=== PATIENT | male | born 1950 | race Caucasian/White ===

== ENCOUNTER 2017-06-13 10:37 | Observation (INO) | payer MEDICARE, BC ==
[2017-06-13] VITALS (10 sets, daily range): BP systolic 118–211; BP diastolic 81–105; PULSE 59–68; RESP 16–18; TEMP 97–97.6; O2SAT 97–100
[~2017-06-13] VITALS: Ht 182.9 cm; Wt 89.7 kg
[~2017-06-13 10:37] MED LIST: ASPI81TA82 PO; CO Q200C3 PO; LOSA25 PO; MECL25CH PO; METO25 PO; MULTTAB23 PO; PLAV75TA PO; PRIL20CA PO; ROSU20 PO; ZOFR4TAB3 SL
[2017-06-13] MEDS ORDERED: ASPI81CH CHEW (11:01)
[2017-06-13] MEDS ORDERED: ROSU1TAB8 PO (11:01)
[2017-06-13] MEDS ORDERED: METO25TA3 PO (11:01)
[2017-06-13] MEDS ORDERED: CLOP75TA PO (11:01)
[2017-06-13] MEDS ORDERED: ALEV220T14 PO (11:01)
[2017-06-13] MEDS ORDERED: MULT-65 PO (11:01)
[2017-06-13] MEDS ORDERED: CLAR10CA3 PO (11:01)
[2017-06-13] MEDS ORDERED: CO Q200C PO (11:01)
[2017-06-13] MEDS ORDERED: LOSA100T PO (11:01)
--- NOTE | 2017-06-13 11:10 | PD ---
HPI Chief Complaint: chest pain Time Seen by Provider: 10:50 Travel History International Travel<30 days: No Contact w/Intl Traveler<30days: No Traveled to known affect area: No History of Present Illness HPI 67-year-old male who is here from [place] until the notes he was sitting at a rest in air conditioning at the computer when he felt tingling to his lower lip broke out in a sweat and developed some chest pressure. He states the symptoms lasted about 5-10 minutes. He states that he has no complaints now. He states his blood pressure was elevated when this happened. He states that in 2011 he had bypass surgery and 2 months after that he had scar tissue and had another heart attack. His states 1 year ago he had a heart catheterization when he was having symptoms that she believes was okay. He denies any other concurrent complaints at this time. Quality was pressure. Severity is resolved PFSH Past Medical History Hx Anticoagulant Therapy: Yes (PLAVIX) Cardiac Catheterization: Yes Cardiovascular Problems: Yes High Cholesterol: Yes Diminished Hearing: No GERD: Yes Hypertension: Yes Influenza Vaccination: No Past Surgical History Appendectomy: Yes Cardiac Surgery: Yes (QUAD BYPASS) Coronary Artery Bypass Graft: Yes (QUAD) Social History Alcohol Use: Yes (DAILY A COUPLE OF GLASSES OF WINE) Tobacco Use: No Substance Use: No Allergies-Medications (Allergen,Severity, Reaction): Coded Allergies: No Known Allergies (Unverified , 06/13/17) Reported Meds & Prescriptions Reported Meds & Active Scripts Active Reported Aleve Arthritis (Naproxen Sodium) 220 Mg Tab 220 Mg PO BID Multi-Vitamin Daily (Multiple Vitamin) 1 Tab Tab 1 Tab PO DAILY Co Q-10 (Coenzyme Q10 (Ubidecarenone)) 200 Mg Cap 1 Tab PO DAILY Losartan (Losartan Potassium) 100 Mg Tab 100 Mg PO DAILY Rosuvastatin (Rosuvastatin Calcium) 20 Mg Tab 20 Mg PO DAILY Claritin (Loratadine) 10 Mg Cap 10 Mg PO DAILY Clopidogrel (Clopidogrel Bisulfate) 75 Mg Tab 75 Mg PO DAILY Metoprolol Tartrate 25 Mg Tab 25 Mg PO DAILY Aspirin 81 Mg Chew 81 Mg CHEW DAILY Review of Systems Except as stated in HPI: all other systems reviewed are Neg Physical Exam Narrative GENERAL: Well-nourished, well-developed patient. SKIN: Warm and dry. HEAD: Normocephalic and atraumatic. EYES: No injection or drainage. ENT: No nasal drainage noted. NECK: Supple, trachea midline. CARDIOVASCULAR: Regular rate and rhythm RESPIRATORY: Breath sounds equal bilaterally. No accessory muscle use. GASTROINTESTINAL: Abdomen soft, non-tender, nondistended. EXTREMITIES: No edema. NEUROLOGICAL: Awake and alert. Motor and sensory grossly within normal limits. Normal speech. No facial droop, 5 out of 5 in all 4 extremities Data Data Last Documented VS Vital Signs Date Time Temp Pulse Resp B/P (MAP) Pulse Ox O2 Delivery O2 Flow Rate FiO2 06/13/17 11:57 65 18 197/105 (135) 100 Room Air 06/13/17 10:41 97.1 Orders Orders Electrocardiogram (06/13/17 11:03) Ckmb (Isoenzyme) Profile (06/13/17 11:03) Complete Blood Count With Diff (06/13/17 11:03) Comprehensive Metabolic Panel (06/13/17 11:03) Magnesium (Mg) (06/13/17 11:03) Prothrombin Time / Inr (Pt) (06/13/17 11:03) Act Partial Throm Time (Ptt) (06/13/17 11:03) Troponin I (06/13/17 11:03) Chest, Single Ap (06/13/17 11:03) Ecg Monitoring (06/13/17 11:03) Bilateral Bp Monitoring (06/13/17 11:03) Iv Access Insert/Monitor (06/13/17 11:03) Oximetry (06/13/17 11:03) Aspirin (Aspirin) (06/13/17 11:15) Sodium Chloride 0.9% Flush (Ns Flush) (06/13/17 11:15) CKMB (06/13/17 11:15) CKMB% (06/13/17 11:15) Admit Order (Ed Use Only) (06/13/17 11:59) Labs Laboratory Tests Test 06/13/17 11:15 White Blood Count 5.3 TH/MM3 Red Blood Count 5.38 MIL/MM3 Hemoglobin 16.6 GM/DL Hematocrit 49.5 % Mean Corpuscular Volume 92.0 FL Mean Corpuscular Hemoglobin 30.9 PG Mean Corpuscular Hemoglobin Concent 33.5 % Red Cell Distribution Width 12.4 % Platelet Count 233 TH/MM3 Mean Platelet Volume 7.2 FL Neutrophils (%) (Auto) 67.1 % Lymphocytes (%) (Auto) 20.7 % Monocytes (%) (Auto) 8.4 % Eosinophils (%) (Auto) 3.3 % Basophils (%) (Auto) 0.5 % Neutrophils # (Auto) 3.6 TH/MM3 Lymphocytes # (Auto) 1.1 TH/MM3 Monocytes # (Auto) 0.4 TH/MM3 Eosinophils # (Auto) 0.2 TH/MM3 Basophils # (Auto) 0.0 TH/MM3 CBC Comment DIFF FINAL Differential Comment Prothrombin Time 10.6 SEC Prothromb Time International Ratio 1.0 RATIO Activated Partial Thromboplast Time 23.9 SEC Blood Urea Nitrogen 22 MG/DL Creatinine 0.88 MG/DL Random Glucose 101 MG/DL Total Protein 7.4 GM/DL Albumin 4.5 GM/DL Calcium Level 8.9 MG/DL Magnesium Level 2.1 MG/DL Alkaline Phosphatase 68 U/L Aspartate Amino Transf (AST/SGOT) 23 U/L Alanine Aminotransferase (ALT/SGPT) 36 U/L Total Bilirubin 0.7 MG/DL Sodium Level 140 MEQ/L Potassium Level 4.2 MEQ/L Chloride Level 105 MEQ/L Carbon Dioxide Level 30.3 MEQ/L Anion Gap 5 MEQ/L Estimat Glomerular Filtration Rate 86 ML/MIN Total Creatine Kinase 175 U/L Creatine Kinase MB 3.7 NG/ML Troponin I LESS THAN 0.02 NG/ML [facility] Medical Decision Making Medical Screen Exam Complete: Yes Emergency Medical Condition: Yes Medical Record Reviewed: Yes (past history confirmed) Interpretation(s) EKG is normal sinus rhythm at 60, there is mild lateral ST depression without ST segment elevation or T-wave inversion CBC & BMP Diagram 06/13/17 11:15 Total Protein 7.4, Albumin 4.5, Calcium Level 8.9, Magnesium Level 2.1, Alkaline Phosphatase 68, Aspartate Amino Transf (AST/SGOT) 23, Alanine Aminotransferase (ALT/SGPT) 36, Total Bilirubin 0.7 Last 24 hours Impressions Chest X-Ray 06/13/17 1103 Signed Impressions: Service Date/Time: Tuesday, June 13, 2017 11:07 - CONCLUSION: No acute abnormality seen. There is elevation of the left hemidiaphragm. Andreas Wayne MD Differential Diagnosis KS, hypertensive urgency, gastroenteritis, musculoskeletal Narrative Course Will check chest x-ray, EKG and dose with aspirin and reevaluate ed workup without emergent findings on laboratory. Patient denies recurrence of pain. Agrees to chest pain center observation. Will dose with Vasotec for blood pressure control here. Patient states he was told he would likely need another blood pressure medication at his last visit Physician Communication Physician Communication dr nesbitt agrees to observation Diagnosis Primary Impression: Chest pain Qualified Codes: R07.9 - Chest pain, unspecified Admitting Information Admitting Physician Requests: Observation Conchita Barahona MD Jun 13, 2017 11:10
[2017-06-13] MEDS ORDERED: ASPIRIN 325 MG TAB PO ONE (11:15)
[2017-06-13] MEDS ORDERED: SODIUM CHLORIDE 0.9% FLUSH 10 ML FLUSH IVF PRN (11:15)
--- NOTE | 2017-06-13 11:27 | RADRPT ---
EXAM DATE/TIME: 06/13/2017 11:07 [facility] COMPARISON: No previous studies available for comparison. INDICATIONS : Chest discomfort starting today MEDICAL HISTORY : None. SURGICAL HISTORY : CABG. ENCOUNTER: Initial ACUITY: 1 day PAIN SCORE: 0/10 LOCATION: Bilateral chest FINDINGS: The patient is status post sternotomy. Heart size is normal. There is elevation of left hemidiaphragm . The lungs are grossly clear. CONCLUSION: No acute abnormality seen. There is elevation of the left hemidiaphragm. Andreas Wayne MD on June 13, 2017 at 11:25 Board Certified Radiologist. This report was verified electronically.
[2017-06-13 11:28] LABS: AUTOMATED NEUTROPHIL # 3.6 TH/MM3 (1.8-7.7); BASOPHIL % 0.5 % (0.0-2.0); EOSINOPHIL # 0.2 TH/MM3 (0-0.4); EOSINOPHIL % 3.3 % (0.0-4.0); HEMATOCRIT 49.5 % (39.0-51.0); HEMO FLAGS DIFF FINAL; LYMPH % 20.7 % (9.0-44.0); LYMPHOCYTE # 1.1 TH/MM3 (1.0-4.8); MEAN CORPUSCULAR HEMOGLOBIN 30.9 PG (27.0-34.0); MEAN CORPUSCULAR HGB CONC 33.5 % (32.0-36.0); MONO % 8.4 % (0.0-8.0); NEUT % 67.1 % (16.0-70.0); PLATELET COUNT 233 TH/MM3 (150-450); RED BLOOD COUNT 5.38 MIL/MM3 (4.50-5.90); RED CELL DISTRIBUTION WIDTH 12.4 % (11.6-17.2); WHITE BLOOD COUNT 5.3 TH/MM3 (4.0-11.0)
[2017-06-13 11:32] LABS: CHLORIDE 105 MEQ/L (98-107); POTASSIUM 4.2 MEQ/L (3.5-5.1); SODIUM (NA) 140 MEQ/L (136-145)
[2017-06-13 11:36] LABS: ANION GAP 5 MEQ/L (5-15); BICARBONATE 30.3 MEQ/L (21.0-32.0); BLOOD UREA NITROGEN 22 MG/DL (7-18); MAGNESIUM 2.1 MG/DL (1.5-2.5)
[2017-06-13 11:39] LABS: ALT (GPT) 36 U/L (12-78); AST (GOT) 23 U/L (15-37); GLOMERULAR FILTRATION RATE 86 ML/MIN (>89)
[2017-06-13 11:41] LABS: TOTAL BILIRUBIN ADULT 0.7 MG/DL (0.2-1.0)
[2017-06-13 11:42] LABS: ALKALINE PHOSPHATASE 68 U/L (45-117); CREATINE KINASE 175 U/L (39-308)
[2017-06-13 11:54] LABS: CKMB 3.7 NG/ML (0.5-3.6)
[2017-06-13 11:57] LABS: APTT (PATIENT) 23.9 SEC (24.3-30.1); PROTHROMBIN TIME - PATIENT 10.6 SEC (9.8-11.6)
[2017-06-13] MEDS ORDERED: ENALAPRILAT 1.25 MG/ML VIAL IV PUSH ONE (12:15)
[2017-06-13] MEDS ORDERED: ONDANSETRON HCL 4 MG/2 ML VIAL IVP PRN (13:15)
[2017-06-13] MEDS ORDERED: NALOXONE HCL 0.4 MG/ML AMP IV PUSH PRN (13:15)
[2017-06-13] MEDS ORDERED: ACETAMINOPHEN 325 MG TAB PO PRN (13:15)
[2017-06-13] MEDS ORDERED: NITROGLYCERIN 0.4 MG SL 25 TABS/BTL SL PRN (13:15)
[2017-06-13] MEDS ORDERED: SODIUM CHLORIDE 0.9% FLUSH 10 ML FLUSH IV FLUSH PRN (13:15)
--- NOTE | 2017-06-13 13:18 | PD.PN.STU ---
Subjective Remarks CC: Clammy and lip tingling HPI: Pt is a 67yo male with a h/o hypertension, hyperlipidemia, and CAD who presented in the ER today with his for elevated home BP of 165/98, lip tingling, and "feeling clammy" while drinking coffee at home early this morning. Pt reports the episode lasting about 15-30min and was alleviated by sitting in front of a fan. Pt denies losing consciousness, any falls, lightheadedness, SOB, or CP during the episode. Last night pt reported drinking more than 2 glasses of wine and indulging in foods high in salt. Pt has been following up with his agricultural systems specialist at home in [place] and has been receiving recommendations to change his lifestyle and diet to control his BP. Pt received a CABGx4 in 2011 and suffered a heart attack 2mo after the surgery. About a year go, he received a cardiac cath because he experienced chest pain. He reports that he has not experienced these symptoms before and that they felt different from his prior heart attacks. Pt denies lightheadedness, weakness, [place] , SOB, CP, abdominal pain, leg pain/swelling. PMH: HTN, CAD, hyperlipidemia, acid reflux, taking plavix/asa PSH: CABGx4 (2011), cardiac cath (2015), appendectomy, spinal fusionx2 FH: mother from cervical and liver cancer at 43yo, father from heart problems secondary to smoking and alcohol use, brother and sister both have CAD SH: smoked tobacco 1ppd in the past for about 20yrs. consumes 1-2glasses of wine everyday, denies illegal drug use. Allergies: NKDA ROS: Complains of myalgias in neck and shoulder after exercise better with Naprosyn, some reflux symptoms, otherwise As per hpi all other review of symptoms is negative Objective Vitals Vital Signs Date Time Temp Pulse Resp B/P (MAP) Pulse Ox O2 Delivery O2 Flow Rate FiO2 06/13/17 12:38 68 18 166/103 (124) 99 Room Air 06/13/17 11:57 65 18 197/105 (135) 100 Room Air 06/13/17 11:23 66 16 178/104 (128) 98 Room Air 06/13/17 11:23 66 178/104 (128) 176/100 (125) 06/13/17 11:18 16 99 Room Air 06/13/17 11:03 65 18 191/95 (127) 99 Room Air 06/13/17 10:41 97.1 65 16 211/101 (137) 97 Result Diagram: 06/13/17 1115 06/13/17 1115 Other Results Laboratory Tests Test 06/13/17 11:15 Monocytes (%) (Auto) 8.4 % (0.0-8.0) Activated Partial Thromboplast Time 23.9 SEC (24.3-30.1) Blood Urea Nitrogen 22 MG/DL (7-18) Estimat Glomerular Filtration Rate 86 ML/MIN (>89) Creatine Kinase MB 3.7 NG/ML (0.5-3.6) Troponin I LESS THAN 0.02 NG/ML Imaging Last Impressions Chest X-Ray 06/13/17 1103 Signed Impressions: Service Date/Time: Thursday, June 13, 2017 11:07 - CONCLUSION: No acute abnormality seen. There is elevation of the left hemidiaphragm. Andreas Wayne MD Objective Remarks GENERAL: pleasant, WDWN, male who appeared younger than his stated age and was in NAD SKIN: Warm and dry. HEAD: Atraumatic. Normocephalic. EYES: Pupils equal and round. EOMI. No scleral icterus. No injection or drainage. ENT: No nasal bleeding or discharge. Mucous membranes pink and moist. NECK: Trachea midline. No JVD. CARDIOVASCULAR: Regular rate and rhythm. S1 and S2 heard, no murmurs, gallops, rubs. RESPIRATORY: No accessory muscle use. Clear to auscultation. Breath sounds equal bilaterally. GASTROINTESTINAL: Normal bowel sounds.Abdomen soft, non-tender, nondistended. Hepatic and splenic margins not palpable. MUSCULOSKELETAL: Able to move all 4 extremities with no difficulty. Extremities without clubbing, cyanosis, or edema. No obvious deformities. NEUROLOGICAL: Awake and alert. No obvious cranial nerve deficits. Motor grossly within normal limits. Five out of 5 muscle strength in the arms and legs. Normal speech. PSYCHIATRIC: Appropriate mood and affect; insight and judgment normal. Medications and IVs Current Medications Medications (Trade) Dose Ordered Sig/Prashant Route Start Time Stop Time Status Last Admin (NS Flush) 2 ml UNSCH PRN IVF 06/13/17 11:15 Reported Meds & Active Scripts Active Reported Multi-Vitamin Daily (Multiple Vitamin) 1 Tab Tab 1 Tab PO DAILY Co Q-10 (Coenzyme Q10 (Ubidecarenone)) 200 Mg Cap 1 Tab PO DAILY Losartan (Losartan Potassium) 100 Mg Tab 100 Mg PO DAILY Rosuvastatin (Rosuvastatin Calcium) 20 Mg Tab 20 Mg PO DAILY Clopidogrel (Clopidogrel Bisulfate) 75 Mg Tab 75 Mg PO DAILY Metoprolol Tartrate 25 Mg Tab 25 Mg PO DAILY Aspirin 81 Mg Chew 81 Mg CHEW DAILY A/P Assessment and Plan 1. Hypertensive Urgency- BP on admission 211/101 etiology poss due to nonadherent diet vs med side effects vs combo place on observation cont IVF as needed cont metoprolol and losartan start amlodipine DC alleve and claritin due to possible side effect of elevation in BP monitor BP CMP showed BUN and Cr wnl 2. Coronary Artery Disease- s/p CABGx4 and cardiac cath negative tropsx1 elevated CKMB 3.7 monitor trop and CKMB levels EKG showed NSR CXR showed no acute abnormalities cardiac monitoring/telemetry restart home meds- aspirin, clopidogrel heart healthy diet 3. Acid reflux-chronic start PPI 4. Hyperlipidemia- chronic start atorvastatin heart healthy diet Medical Decision Making Impression and Plan The exam, history, and the medical decision-making described in the above note were completed with the assistance of the student. I reviewed and agree with the findings presented. I attest that I had a [id number] encounter with the patient on the same day, and personally performed and documented my assessment and findings in the medical record. We'll follow in observation to improve blood pressure, consider discharge if stable on my review of EKG Sin without ischemic changes, my review of chest x-ray no acute cardiopulmonary findings breakfast discussed with HALEY webb, patient and spouse reassessed patient at 548 pm BP improved, trops negative x2, no new events and no cp d/c home heart healthy low sodium diet activity as tolerated Brenda Brewer Jun 13, 2017 13:18 Lenore Delatorre MD Jun 13, 2017 14:00
[2017-06-13] MEDS ORDERED: amLODIPine BESYLATE 5 MG TAB PO SCH (14:00)
[2017-06-13] MEDS ORDERED: PANTOPRAZOLE SOD 40 MG DELAYED RELEASE TAB PO SCH (14:00)
[2017-06-13 16:48] LABS: CREATINE KINASE 141 U/L (39-308)
--- NOTE | 2017-06-13 16:55 | EKG ---
Date Performed: 06/13/2017 Time Performed: 11:21:33 PTAGE: 67 years EKG: Sinus rhythm MINIMAL ST DEPRESSION BORDERLINE ECG PREVIOUS TRACING : 05/08/2015 10.13 DOCTOR: Roopa Eduardo Interpretating Date/Time 06/13/2017 16:55:01
[2017-06-13] MEDS ORDERED: TYLE325T PO (17:46)
[2017-06-13] MEDS ORDERED: AMLO2.5T PO (17:46)
[2017-06-13] MEDS ORDERED: PANT40TA3 PO (17:46)
--- NOTE | 2017-06-13 17:47 | HHI.DCPOC ---
Discharge Care Plan Diagnosis: (1) Hypertensive urgency Additional Problems nsaids( ibuprofen, naprosyn) and antihistamines until seen by your PCP Goals to Promote Your Health * To prevent worsening of your condition and complications * To maintain your health at the optimal level Directions to Meet Your Goals Take your medications as prescribed Follow your dietary instruction Follow activity as directed Keep your appointments as scheduled Take your immunizations and boosters as scheduled If your symptoms worsen call your PCP, if no PCP go to Urgent Care Center or Emergency Room Smoking is Dangerous to Your Health. Avoid second hand smoke Call the 24-hour hour crisis hotline for domestic abuse at Lenore Delatorre MD Jun 13, 2017 17:47
[2017-06-13] MEDS ORDERED: SODIUM CHLORIDE 0.9% FLUSH 10 ML FLUSH IV FLUSH SCH (21:00)
[2017-06-14] MEDS ORDERED: ATORVASTATIN 40 MG TAB PO SCH (09:00)
[2017-06-14] MEDS ORDERED: ASPIRIN 81 MG CHEW TAB CHEW SCH (09:00)
[2017-06-14] MEDS ORDERED: METOPROLOL TARTRATE 25 MG TAB PO SCH (09:00)
[2017-06-14] MEDS ORDERED: CLOPIDOGREL 75 MG TAB PO SCH (09:00)
[2017-06-14] MEDS ORDERED: MULTIVITAMIN TAB PO SCH (09:00)
[2017-06-14] MEDS ORDERED: LOSARTAN 50 MG TAB PO SCH (09:00)
== END 2017-06-13 18:32 | disposition home or self-care (01) ==
LOC: PHED 10:37 → PHEDA 12:00 → PH3B 13:41
PROVIDERS: ADMIT Hospitalist; ATTEND Hospitalist
DX: I16.0 Hypertensive urgency (principal); R07.9 Chest pain, unspecified; R20.2 Paresthesia of skin; Z79.01 Long term (current) use of anticoagulants; E78.00 Pure hypercholesterolemia, unspecified; K21.9 Gastro-esophageal reflux disease without esophagitis; I10 Essential (primary) hypertension; Z79.899 Other long term (current) drug therapy; Z95.1 Presence of aortocoronary bypass graft; R94.31 Abnormal electrocardiogram [ECG] [EKG]; I25.10 Atherosclerotic heart disease of native coronary artery without angina pectoris
CPT/HCPCS: 71010; 80053; 82550; 82552; 83735; 84484; 85025; 85610; 85730; 93005; 99285; G0378